=== PATIENT | male | born 1950 | race Caucasian/White ===

== ENCOUNTER → 2016-12-09 | Outpatient (CLI) | payer BC, MEDICARE ==
[~2016-12-09] MED LIST: ACIPHEX20 MG; ACIPHEX20 MG PO; ALLEGRA PO; ASPIRIN PO; BUSPAR PO; CARAFATE; CARBATROL300 MG; CARBATROL300 MG PO; DIOVAN HCT 160/1 TAB PO; EFFEXOR; EFFEXOR PO; HCTZ PO; KEPPRA PO; KEPPRA750 MG; KEPPRA750 MG PO; LOTREL 5/20 MG1 CAP; LYRICA PO; ZYLOPRIM
--- NOTE | ~2016-12-09 | ST ---
Unit #: [id number] #: [id number] Patient: ARMANDO VALE JR [id number] [facility]. [address] [place], [place] [address] [id number] O MR#: [id number] NAME: ARMANDO VALE JR : 1950 SEX: M STUDY DATE/TIME: 12/09/2016 UNIT: [facility] ROOM: STUDY DESCRIPTION: Attending Physician: Irvin Foss M.D. Referring Physician: Irvin Foss M.D. Primary Care Physician: German Tapia M.D. CARDIOLOGY REPORT EXAM EKG portion of a Lexiscan Cardiolite stress test. REASON FOR TEST Shortness of breath as well as some mild chest pain to the mid chest that radiates to his jaws and also is associated with a headache. FINDINGS Baseline EKG showed sinus rhythm with a rate of 78 with poor R-wave progression. The patient was injected with 0.4 mg of Lexiscan followed by Cardiolite per protocol. The patient's resting heart rate was 81 with a maximum heart rate of 107. The patient's resting blood pressure was 130/87 with a maximum blood pressure of 130/87. The patient had no chest pain or pressure during the test. He did complain of some slight shortness of breath as well as some slight dizziness towards the second and third minute of the test; however, those both resolved by the end of the recovery period without any kind of reversal agent. The patient's blood pressure low was 110/71. At which point, the patient did complain of a slight dizziness. The patient was reclined back and that did subside. The patient had no sustained arrhythmias during the test. There was no ectopy and no changes to the ST segment during the test to indicate ischemia. Patient tolerated well with no complications. No reversal was needed. IMPRESSION 1. No changes to ST segment. 2. No sustained arrhythmias. 3. No ectopy noted. 4. No complaints of chest pain during the test. 5. No reversal was needed. 6. Please correlate with Cardiolite imaging. Dictated by... NAIMA Chris TD: 12/09/2016 10:33 JOB #: [id number] Unit #: [id number] #: [id number] Patient: ARMANDO VALE JR CARDIOLOGY REPORT X CARDIOLOGY REPORT
--- NOTE | ~2016-12-09 | TH ---
Unit #: [id number] #: [id number] Patient: ARMANDO VALE JR [id number] [address] [address] [id number] O MR#: [id number] NAME: ARMANDO VALE JR : 1950 SEX: M STUDY DATE/TIME: UNIT: [facility] ROOM: STUDY DESCRIPTION: Nuclear Study Attending Physician: Irvin Foss M.D. Referring Physician: Irvin Foss M.D. Primary Care Physician: German Tapia M.D. CARDIOLOGY REPORT EXAM Lexiscan Cardiolite Stress Test - Nuclear Portion PROCEDURE Using technetium 99m labeled Cardiolite, rest and stress SPECT images were obtained. Multiple SPECT images were obtained in various views including horizontal and vertical long axis and short axis views of the left ventricle. Images were obtained by gated SPECT method. The patient was administered 11.79 mCi of Cardiolite at rest. The patient was administered 33.3 mCi of Cardiolite after Lexiscan infusion was completed. On the stress images, there is normal perfusion noted. The rest images show normal perfusion. Comparing rest and stress images, there is no stress-induced ischemia noted. The left ventricular ejection fraction is calculated to be 63%. There is no focal wall motion abnormality seen. CONCLUSION 1. No stress-induced ischemia noted. 2. The left ventricular ejection fraction is calculated to be 63%. 3. There is no focal wall motion abnormality seen. 4. Normal Lexiscan Cardiolite stress test. Dictated by... Joe Godoy TD: 12/09/2016 12:23 JOB #: [id number] Unit #: [id number] #: [id number] Patient: ARMANDO VALE JR CARDIOLOGY REPORT X Karla Gracia MD <ELECTRONICALLY SIGNED> 04/26/17 1428 CARDIOLOGY REPORT
== END | disposition home or self-care (01) ==
LOC: CNUC 07:36
DX: R07.9 Chest pain, unspecified (principal); R06.00 Dyspnea, unspecified
CPT/HCPCS: 78452; 93017; A9500; J2785